=== PATIENT | male | born 1950 | race African-American/Black ===

== ENCOUNTER 2024-02-22 20:58 | Inpatient (IN) | payer OTHER ==
[~2024-02-22] VITALS: Ht 182.9 cm; Wt 93.4 kg
[2024-02-22] MEDS: AMIODARONE 150MG/100ML PREMIX 100 ML IV ONE (21:52)
[2024-02-22] MEDS ORDERED: AMIODARONE HCL 900 MG in DEXT 5% WATER 482 ML IV STA (21:57)
[2024-02-22 21:59] LABS: HEMATOCRIT. 39.9 % (42.0-52.0); HEMOGLOBIN. 12.4 g/dL (14.0-18.0); MEAN CORPUSCULAR HEMOGLOBIN 29.6 pg (28.0-32.0); MEAN CORPUSCULAR HGB CONC 31.2 g/dL (31.0-37.0); MEAN CORPUSCULAR VOLUME 94.7 fL (80.0-94.0); MEAN PLATELET VOLUME 8.2 fl (7.4-10.4); PLATELET 160 x1000/uL (130-400); RED BLOOD CELL COUNT 4.21 mill/uL (4.7-6.1); RED CELL DISTRIBUTION WIDTH 18.7 % (11.6-14.6)
[2024-02-22 22:06] LABS: DIFFERENTIAL COMMENT 1
[2024-02-22 22:07] LABS: CHLORIDE 106 mEq/L (98-107); POTASSIUM 3.9 mEq/L (3.5-5.1); SODIUM 142 mEq/L (136-145)
[2024-02-22 22:08] LABS: CALCIUM 10.5 mg/dL (8.7-10.4); CARBON DIOXIDE 17 mEq/L (21-32)
[2024-02-22] MEDS ORDERED: EPINEPHRINE 5 MG in SODIUM CHLORIDE 0.9% 245 ML IV STA (22:12)
[2024-02-22] MEDS ORDERED: PHENYLEPHRINE 50MG/250ML PMX 250 ML IV STA (22:12)
[2024-02-22 22:13] LABS: CREATININE 3.2 mg/dL (0.6-1.3); GLUCOSE 225 mg/dL (70-105)
[2024-02-22 22:14] LABS: UREA NITROGEN BLOOD 46 mg/dL (9-23)
[2024-02-22 22:15] LABS: ALANINE AMINOTRANSFERASE 614 IU/L (10-49); ALBUMIN 3.4 g/dL (3.2-4.8); ASPARTATE AMINOTRANSFERASE 635 IU/L (<34)
[2024-02-22 22:16] LABS: BILIRUBIN TOTAL 0.3 mg/dL (0.1-1.0)
[2024-02-22 22:17] LABS: ETHANOL BLOOD < 10 mg/dL (<10)
[2024-02-22 22:19] LABS: BG BASE EXCESS -14.1 mmol/L (-2.0-2.0); BG CARBOXYHEMOGLOBIN 0.9 % (0.5-1.5); BG DEOXYHEMOGLOBIN 23.3 % (0.0-5.0); BG FRACTION INSPIRED OXYGEN 100; BG METHEMOGLOBIN 0.3 % (0.0-1.5); BG OXYGEN SATURATION 76.4 % (92.0-98.5); BG OXYHEMOGLOBIN 75.5 % (94.0-97.0); BG PCO2 47.2 mmHg (35.0-45.0); BG PH 7.119 (7.350-7.450); BG SAMPLE SITE LEFT FEMORAL; BG TOTAL HEMOGLOBIN 12.9 g/dL (12.0-18.0); BG VENT MODE VENT - AC
[2024-02-22 22:20] LABS: LACTIC ACID 10.2 mmol/L (0.4-2.0); TROPONIN I HIGH SENSITIVITY 1959 ng/L (3.0-53)
[2024-02-22 22:24] LABS: ANISOCYTOSIS 1+; NUCLEATED RED BLOOD CELLS 9 /100 WBC; PLATELET ESTIMATE NORMAL
[2024-02-22] MEDS: ALBUTEROL (0.083%) 2.5MG/3ML NEB HHN STA (22:28)
[2024-02-22] MEDS: IPRATROPIUM BROMIDE (0.02%) 0.5MG/2.5ML NEB HHN STA (22:29)
[2024-02-22 22:35] VITALS: PULSE 104; RESP 26
[2024-02-22] MEDS: NOREPINEPHRINE 8MG/250ML PMX 250 ML IV ONE (22:40)
[2024-02-22] MEDS: PROPOFOL 10MG/ML 100ML 100 ML IV SCH (22:45)
[2024-02-22] MEDS: LEVOFLOXACIN 750MG PREMIX 150 ML IV ONE (22:45)
[2024-02-22] MEDS: AMIODARONE HCL 900 MG in DEXT 5% WATER 482 ML IV STA (22:47)
[2024-02-22] MEDS: EPINEPHRINE 5 MG in SODIUM CHLORIDE 0.9% 245 ML IV STA (22:52)
[2024-02-22] MEDS ORDERED: FENTANYL 2500MCG/250ML PMX 250 ML IV ONE (23:15)
[2024-02-22] MEDS: SODIUM CHLORIDE 0.9% 1,000 ML IV ONE (23:27)
[2024-02-22] MEDS: VANCOMYCIN 1G PREMIX 200 ML IV ONE (23:37)
[2024-02-22] MEDS ORDERED: MIDAZOLAM 100MG/100ML PMX 100 ML IV PRN (23:45)
[2024-02-22] MEDS: MIDAZOLAM 100MG/100ML PMX 100 ML IV PRN (23:54)
[2024-02-22] MEDS: FENTANYL 2500MCG/250ML PMX 250 ML IV PRN (23:55)
[2024-02-23] VITALS (33 sets, daily range): BP systolic 52–128; BP diastolic 25–82; PULSE 65–113; RESP 19–34; TEMP 95–95.8
[2024-02-23 00:38] LABS: TROPONIN I HIGH SENSITIVITY > 25000 ng/L (3.0-53)
[2024-02-23] MEDS: PHENYLEPHRINE 50MG/250ML PMX 250 ML IV STA (00:45)
[2024-02-23] MEDS: NOREPINEPHRINE 8MG/250ML PMX 250 ML IV ONE (00:45)
[2024-02-23] MEDS ORDERED: HEPARIN 25,000 UNITS PREMIX 250 ML IV ONE (01:00)
[2024-02-23] MEDS ORDERED: VANCOMYCIN 1G PREMIX 200 ML IV SCH (01:45)
[2024-02-23] MEDS: IPRATROPIUM/ALBUTEROL 0.5-3(2.5)MG/3ML NEB HHN SCH (01:45)
[2024-02-23] MEDS ORDERED: ACETAMINOPHEN 325MG TABLET NG PRN (01:45)
[2024-02-23] MEDS ORDERED: PHENYLEPHRINE 50MG/250ML PMX 250 ML IV PRN (01:45)
[2024-02-23] MEDS ORDERED: NOREPINEPHRINE 8MG/250ML PMX 250 ML IV PRN (01:45)
[2024-02-23] MEDS ORDERED: EPINEPHRINE 5 MG in SODIUM CHLORIDE 0.9% 245 ML IV PRN (01:45)
[2024-02-23] MEDS ORDERED: IPRATROPIUM/ALBUTEROL 0.5-3(2.5)MG/3ML NEB HHN PRN (01:45)
[2024-02-23 02:12] LABS: INR 1.3; PARTIAL THROMBOPLASTIN TIME 35.5 sec (23.4-31.0); PROTHROMBIN TIME 14.4 sec (9.6-11.0)
[2024-02-23] MEDS ORDERED: IPRATROPIUM/ALBUTEROL 0.5-3(2.5)MG/3ML NEB ONE (02:17)
[2024-02-23 02:24] LABS: D-DIMER > 35.20 mg/L FEU (<0.50)
[2024-02-23 02:37] LABS: BG BASE EXCESS -16.8 mmol/L (-2.0-2.0); BG DEOXYHEMOGLOBIN 32.3 % (0.0-5.0); BG FRACTION INSPIRED OXYGEN 100; BG HCO3 ACT 13.2 mmol/L (22.0-26.0); BG METHEMOGLOBIN 0.1 % (0.0-1.5); BG OXYGEN SATURATION 67.3 % (92.0-98.5); BG OXYHEMOGLOBIN 66.6 % (94.0-97.0); BG PCO2 48.2 mmHg (35.0-45.0); BG PH 7.057 (7.350-7.450); BG PO2 47.3 mmHg (75.0-100.0); BG SAMPLE SITE LEFT BRACHIAL; BG VENT MODE VENT - AC
[2024-02-23 03:00] LABS: CLARITY URINE CLEAR (CLEAR); COLOR URINE YELLOW (YELLOW); GLUCOSE URINE NEGATIVE (NEGATIVE); KETONES URINE NEGATIVE (NEGATIVE); LEUKOCYTE ESTERASE URINE NEGATIVE (NEGATIVE); NITRITE URINE NEGATIVE (NEGATIVE); OCCULT BLOOD URINE 2+ (NEGATIVE); PROTEIN URINE 1+ (NEGATIVE); SPECIFIC GRAVITY URINE 1.009 (1.005-1.030); UROBILINOGEN URINE 0.2 E.U./dL (0.2-1.0)
[2024-02-23] MEDS: HEPARIN 60 UNITS/KG BOLUS IV NR (03:02)
[2024-02-23 03:12] LABS: *AMPHETAMINES SCREEN URINE NEGATIVE (NEGATIVE); *BARBITURATES SCREEN URINE NEGATIVE (NEGATIVE); *BENZODIAZEPINES SCREEN URINE NEGATIVE (NEGATIVE)
[2024-02-23] MEDS: HEPARIN 25,000 UNITS PREMIX 250 ML IV SCH (03:12)
[2024-02-23 03:13] LABS: *COCAINE SCREEN URINE NEGATIVE (NEGATIVE); CANNABINOID URINE SCREEN NEGATIVE (NEGATIVE); ECSTASY MDMA SCREEN URINE NEGATIVE (NEGATIVE); METHADONE URINE SCREEN Neg (NEGATIVE); OPIATES URINE SCREEN NEGATIVE (NEGATIVE); PHENCYCLIDINE URINE SCREEN NEGATIVE (NEGATIVE)
[2024-02-23 03:15] LABS: CHLORIDE 107 mEq/L (98-107); POTASSIUM 4.6 mEq/L (3.5-5.1); SODIUM 142 mEq/L (136-145)
[2024-02-23] MEDS ORDERED: DEXTROSE 50% WATER 50ML SYRINGE IV PRN (03:15)
[2024-02-23 03:16] LABS: CALCIUM 10.3 mg/dL (8.7-10.4); CARBON DIOXIDE 18 mEq/L (21-32)
[2024-02-23 03:20] LABS: IRON 199 ug/dL (65-175)
[2024-02-23 03:21] LABS: CREATININE 2.8 mg/dL (0.6-1.3); GLUCOSE 159 mg/dL (70-105); UREA NITROGEN BLOOD 37 mg/dL (9-23)
[2024-02-23 03:23] LABS: ALANINE AMINOTRANSFERASE 704 IU/L (10-49); ALBUMIN 3.2 g/dL (3.2-4.8); BILIRUBIN TOTAL 0.6 mg/dL (0.1-1.0)
[2024-02-23 03:24] LABS: BETA HYDROXYBUTYRATE 0.4 mMol/L (0.0-0.3); PROTEIN TOTAL 6.3 g/dL (6.0-8.3); TOTAL IRON BINDING CAPACITY 335 ug/dl (250-425)
[2024-02-23 03:35] LABS: ASPARTATE AMINOTRANSFERASE 1094 IU/L (<34)
[2024-02-23] MEDS: SODIUM BICARBONATE 8.4% 1 MEQ/ML 50ML SYR IV NR ×3 (04:15→09:41)
[2024-02-23] MEDS: SODIUM BICARBONATE 100 MEQ in DEXTROSE 5% WATER 900 ML IV SCH (04:16)
[2024-02-23] MEDS: NOREPINEPHRINE 32 MG in DEXT 5% WATER 218 ML IV PRN (04:36)
[2024-02-23] MEDS: SODIUM CHLORIDE 0.9% 1,000 ML IV SCH (04:47)
[2024-02-23] MEDS: VANCOMYCIN 1GM/200ML PMX (BAXTER) IV NR (05:03)
[2024-02-23] MEDS: EPINEPHRINE 5 MG in SODIUM CHLORIDE 0.9% 245 ML IV PRN (05:13)
[2024-02-23] MEDS: MEROPENEM 1G/100ML 100 ML IV SCH (05:56)
[2024-02-23] MEDS: BLOOD SUGAR DIAGNOSTIC STRIP TEST SCH (05:57)
[2024-02-23 06:19] LABS: BG BASE EXCESS -16.3 mmol/L (-2.0-2.0); BG CARBOXYHEMOGLOBIN 0.3 % (0.5-1.5); BG DEOXYHEMOGLOBIN 31.2 % (0.0-5.0); BG FRACTION INSPIRED OXYGEN 100; BG HCO3 ACT 13.5 mmol/L (22.0-26.0); BG METHEMOGLOBIN 0.3 % (0.0-1.5); BG OXYGEN SATURATION 68.6 % (92.0-98.5); BG OXYHEMOGLOBIN 68.2 % (94.0-97.0); BG PCO2 48.8 mmHg (35.0-45.0); BG PO2 47.4 mmHg (75.0-100.0); BG SAMPLE SITE LEFT BRACHIAL; BG TOTAL HEMOGLOBIN 11.2 g/dL (12.0-18.0); BG VENT MODE VENT - AC
[2024-02-23 07:46] LABS: SQUAMOUS EPITHELIAL CELL URINE FEW /lpf (RARE/1+)
[2024-02-23 07:47] LABS: RBC URINE 0-2 /hpf (0-2); WBC URINE 0-2 /hpf (0-2)
[2024-02-23 07:48] LABS: BACTERIA URINE NONE SEEN
[2024-02-23] MEDS: FAMOTIDINE 20MG/2ML VIAL IV SCH (08:14)
[2024-02-23] MEDS ORDERED: HEPARIN BOLUS PRN aPTT 30-44 IV (09:00)
[2024-02-23] MEDS ORDERED: HEPARIN BOLUS PRN aPTT <30 IV (09:00)
[2024-02-23] MEDS: PHENYLEPHRINE 50MG/250ML PMX 250 ML IV PRN (09:05)
[2024-02-23 09:09] LABS: HEMATOCRIT. 30.9 % (42.0-52.0); MEAN CORPUSCULAR HEMOGLOBIN 28.3 pg (28.0-32.0); MEAN CORPUSCULAR HGB CONC 29.2 g/dL (31.0-37.0); MEAN PLATELET VOLUME 8.1 fl (7.4-10.4); PLATELET 165 x1000/uL (130-400); RED BLOOD CELL COUNT 3.19 mill/uL (4.7-6.1); RED CELL DISTRIBUTION WIDTH 19.9 % (11.6-14.6)
[2024-02-23] MEDS ORDERED: PHENYLEPHRINE 100 MG in DEXT 5% WATER 240 ML IV PRN (09:15)
[2024-02-23 09:18] LABS: CHLORIDE 106 mEq/L (98-107); POTASSIUM 3.9 mEq/L (3.5-5.1); SODIUM 148 mEq/L (136-145)
[2024-02-23 09:19] LABS: CALCIUM 8.7 mg/dL (8.7-10.4); CARBON DIOXIDE 16 mEq/L (21-32)
[2024-02-23 09:24] LABS: CREATININE 3.4 mg/dL (0.6-1.3); GLUCOSE 193 mg/dL (70-105); TRIGLYCERIDE 193 mg/dL (0-150); UREA NITROGEN BLOOD 49 mg/dL (9-23)
[2024-02-23 09:25] LABS: LDL CHOLESTEROL 86 mg/dL (5-100)
[2024-02-23 09:26] LABS: ALANINE AMINOTRANSFERASE 571 IU/L (10-49); ALBUMIN 2.2 g/dL (3.2-4.8); CHOLESTEROL 112 mg/dL (<200); DIFFERENTIAL COMMENT 1; HDL CHOLESTEROL 23 mg/dL (>55)
[2024-02-23 09:27] LABS: BILIRUBIN TOTAL 0.7 mg/dL (0.1-1.0); PROTEIN TOTAL 4.4 g/dL (6.0-8.3)
[2024-02-23 09:29] LABS: T4 FREE 1.12 ng/dL (0.89-1.76); THYROID STIMULATING HORMONE 1.35 uIU/mL (0.55-4.78)
[2024-02-23] MEDS ORDERED: VASOPRESSIN 20 UNIT in SODIUM CHLORIDE 0.9% 99 ML IV PRN (09:45)
[2024-02-23 09:56] LABS: BG CARBOXYHEMOGLOBIN 0.1 % (0.5-1.5); BG DEOXYHEMOGLOBIN 25.2 % (0.0-5.0); BG FRACTION INSPIRED OXYGEN 100; BG HCO3 ACT 9.7 mmol/L (22.0-26.0); BG METHEMOGLOBIN 0.3 % (0.0-1.5); BG OXYGEN SATURATION 74.7 % (92.0-98.5); BG OXYHEMOGLOBIN 74.4 % (94.0-97.0); BG PCO2 38.4 mmHg (35.0-45.0); BG PH 7.022 (7.350-7.450); BG PO2 53.7 mmHg (75.0-100.0); BG SAMPLE SITE RIGHT RADIAL; BG VENT MODE VENT - AC
[2024-02-23] MEDS ORDERED: EPINEPHRINE 10 MG in SODIUM CHLORIDE 0.9% 240 ML IV PRN (10:00)
[2024-02-23 10:02] LABS: CREATINE KINASE 2528 IU/L (46-171)
[2024-02-23] MEDS ORDERED: ALBUMIN HUMAN 12.5G/250ML (5%) IV NR (10:30)
[2024-02-23 11:01] LABS: TROPONIN I HIGH SENSITIVITY > 25000 ng/L (3.0-53)
[2024-02-23 11:03] LABS: CREATINE KINASE MB FRACTION 54.4 ng/mL (0.5-3.6)
[2024-02-23 11:11] LABS: VITAMIN B12 SERUM 1032 pg/mL (211-911)
[2024-02-23 13:03] LABS: NUCLEATED RED BLOOD CELLS 9 /100 WBC; PLATELET ESTIMATE NORMAL
[2024-02-23 13:04] LABS: ANISOCYTOSIS 2+
[2024-02-23 15:25] LABS: FOLIC ACID (FOLATE) SERUM > 20.00 ng/mL (>5.38)
== END 2024-02-23 14:58 | DRG 871 ==
LOC: ER 20:58 → MICUNO 02-23 00:41
PROVIDERS: ADMIT Internal Medicine; ATTEND Internal Medicine
PROC: 02HV33Z Insertion of Infusion Device into Superior Vena Cava, Percutaneous Approach (ICD-10-PCS; principal; 2024-02-22)
PROC: B548ZZA Ultrasonography of Superior Vena Cava, Guidance (ICD-10-PCS; 2024-02-22)
PROC: 5A1935Z Respiratory Ventilation, Less than 24 Consecutive Hours (ICD-10-PCS; 2024-02-22)
PROC: 0BH17EZ Insertion of Endotracheal Airway into Trachea, Via Natural or Artificial Opening (ICD-10-PCS; 2024-02-22)
PROC: 5A12012 Performance of Cardiac Output, Single, Manual (ICD-10-PCS; 2024-02-23)
DX: A41.9 Sepsis, unspecified organism (principal); G92.8 Other toxic encephalopathy; I21.4 Non-ST elevation (NSTEMI) myocardial infarction; R65.21 Severe sepsis with septic shock; K72.00 Acute and subacute hepatic failure without coma; J69.0 Pneumonitis due to inhalation of food and vomit; J18.9 Pneumonia, unspecified organism; E87.29 Other acidosis; I50.22 Chronic systolic (congestive) heart failure; N17.9 Acute kidney failure, unspecified; M62.82 Rhabdomyolysis; E11.9 Type 2 diabetes mellitus without complications; D53.9 Nutritional anemia, unspecified; I11.0 Hypertensive heart disease with heart failure; I44.0 Atrioventricular block, first degree; I45.10 Unspecified right bundle-branch block; E83.39 Other disorders of phosphorus metabolism; I46.9 Cardiac arrest, cause unspecified; S06.890A Other specified intracranial injury without loss of consciousness, initial encounter; Z51.5 Encounter for palliative care; Z79.01 Long term (current) use of anticoagulants; Z79.899 Other long term (current) drug therapy; Z88.0 Allergy status to penicillin; Z95.810 Presence of automatic (implantable) cardiac defibrillator; X58.XXXA Exposure to other specified factors, initial encounter; Y93.89 Activity, other specified; Y92.89 Other specified places as the place of occurrence of the external cause; Y99.8 Other external cause status; Z79.4 Long term (current) use of insulin
CPT/HCPCS: 36415; 36600; 71045; 71250; 80053; 80061; 80305; 80320; 81003; 82010; 82375; 82550; 82553; 82607; 82728; 82746; 82805; 82962; 83036; 83540; 83550; 83605; 83735; 83880; 83930; 84100; 84145; 84439; 84443; 84484; 85025; 85379; 86850; 86900; 87070; 87077; 92950; 93005; 93970; 94002; 94003; 94640; 99291; A6261; J0282; J1644; J1956; J2185; J2250; J2370; J2704; J3010; J3370; J3490; J7030; J7050; J7060; J7070; P9041; A5200; G0480